=== PATIENT | male | born 1970 | race Caucasian/White ===

== ENCOUNTER 2021-08-25 23:02 | Inpatient (IN) | payer OTHER ==
[~2021-08-25] VITALS: Ht 182.9 cm; Wt 129.3 kg
[2021-08-26] MEDS ORDERED: LOPRESSOR 25 MG25 MG PO (01:15)
[2021-08-26] MEDS ORDERED: LISINOPRIL10 MG PO (01:15)
[2021-08-26 01:33] LABS: HEMOGLOBIN 15.2 gm/dl (14.0-17.5); WHITE BLOOD COUNT 9.4 K/UL (4.5-11.0)
[2021-08-26 02:03] LABS: BUN/CREATININE RATIO 14 (0-10)
[2021-08-26] MEDS ORDERED: NITROGLYCERIN0.4 MG SL (14:47)
[2021-08-26] MEDS ORDERED: ASPIRIN81 MG PO (14:47)
[2021-08-26] MEDS ORDERED: ATORVASTATIN CA20 MG PO (14:55)
[2021-08-26] MEDS ORDERED: HEPARIN IV (14:55)
--- NOTE | 2021-08-26 19:46 | NUR ---
ATTEMPTED TO CALL REPORT TO [facility] AT 1935. NURSE REFUSING REPORT AT THIS TIME. 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
--- NOTE | 2021-08-26 20:27 | NUR ---
REPORT CALLED AT 2001 TO [facility]. PATIENT TRANSFERRED VIA ALS GROUND. LAST SET OF VITALS WERE 151/92 (107) HR 82 RR 19 02 99 ON RA TEMP 98.0. IV STILL INTACT WITH HEPARIN INFUSING AT 14ML/HR. [facility] AWARE THAT NEXT PTT RECHECK IS AT 2300. PT LEFT AT 2007.
== END 2021-08-26 20:08 | disposition short-term general hospital (02) | DRG 282 ==
LOC: PROG CARE 23:02
PROVIDERS: ADMIT Internal Medicine
PROC: B24BZZZ Ultrasonography of Heart with Aorta (ICD-10-PCS; principal; 2021-08-26)
PROC: B2111ZZ Fluoroscopy of Multiple Coronary Arteries using Low Osmolar Contrast (ICD-10-PCS; 2021-08-26)
DX: I21.4 Non-ST elevation (NSTEMI) myocardial infarction (principal); Z20.822 Contact with and (suspected) exposure to COVID-19; I10 Essential (primary) hypertension; F17.210 Nicotine dependence, cigarettes, uncomplicated; I20.9 Angina pectoris, unspecified; E66.01 Morbid (severe) obesity due to excess calories; I08.3 Combined rheumatic disorders of mitral, aortic and tricuspid valves; Z98.890 Other specified postprocedural states; Z79.01 Long term (current) use of anticoagulants; Z79.82 Long term (current) use of aspirin; Z83.3 Family history of diabetes mellitus; Z82.49 Family history of ischemic heart disease and other diseases of the circulatory system; Z68.38 Body mass index [BMI] 38.0-38.9, adult
CPT/HCPCS: ECHO; 36415; 80048; 80061; 82550; 82553; 83036; 83735; 84439; 84443; 84484; 85025; 85610; 85730; 93005; 93306; 99152; C1769; C1887; C1894; J0360; J1644; J2250; J2270; J3010; Q9967